=== PATIENT | male | born 1970 | race Caucasian/White ===

== ENCOUNTER → 2024-07-14 | Outpatient (CLI) | payer BC, SELFPAY ==
--- NOTE | 2024-07-14 09:55 | VDLE_ITS ---
Reason For Study: BLE PAin RIGHT LEFT GSV is normal. GSV is normal. CFV is compressible, spontaneous, phasic, CFV is compressible, spontaneous, phasic, competent and demonstrates normal competent, and demonstrates normal augmentation. augmentation. FV is compressible, spontaneous, phasic, FV is compressible, spontaneous, phasic, competent and demonstrates normal competent and demonstrates normal augmentation. augmentation. POP V is compressible, spontaneous, phasic, POP V is compressible, spontaneous, phasic, competent and demonstrates normal competent and demonstrates normal augmentation. augmentation. T/P Trunk is compressible. T/P Trunk is compressible. PTV is compressible. PTV is compressible. RT PerV is compressible. LT PerV is compressible. Procedure Exam performed in department. This is a venous duplex using B-mode, color flow and spectral Doppler. The exam was diagnostic. VL/Venous Duplex US - Lake Extrem Interpretation Summary Deep veins of the bilateral lower extremities are patent and compressible segme ntally. There is no evidence of bilateral lower extremity deep vein thrombosis. The bilateral great saphenous veins appear patent and compressible segmentally. Ordering Physician: Oswaldo Savage Referring Physician: N/A Performed By: Miguel Alegre RVT
--- NOTE | 2024-07-14 09:55 | ART_ITS ---
Reason For Study: BLE Pain Procedure A bilateral lower extremity continuous wave Doppler with analog waveform analysis,segmental pressures,and ankle brachial indexes without exercise. Left Segmental Pressures Left brachial= 129mmHg. Left posterior tibial artery = 143mmHg. Left dorsalis pedis artery = 136mmHg. Left digit = 66 mmHg. The left posterior tibial artery waveforms are triphasic. The left dorsalis pedis waveforms are triphasic. Right Segmental Pressures Right brachial= 130mmHg. Right posterior tibial artery = 146mmHg. Right dorsalis pedis artery = 140mmHg. Right digit = 110 mmHg. The right posterior tibial artery waveforms are triphasic. The right dorsalis pedis waveforms are triphasic. Indices The right ankle brachial index by the posterior tibial artery is 1.12. The right ankle brachial index by the dorsalis pedis is 1.08. The right digital-brachial index is 0.85. The left ankle brachial index by the posterior tibial artery is 1.10. The left ankle brachial index by the dorsalis pedis is 1.05. The left digital-brachial index is 0.51. VL/Lower Ext Art Exam w/o Exercis Interpretation Summary Right ELIUD 1.12, normal. TBI and Doppler/PVR waveforms of the right leg normal a t rest. Left ELIUD 1.1, normal. Doppler/PVR waveforms of the left leg normal at rest. TBI diminished, pedal/digit disease vs spasm. Ordering Physician: Oswaldo Savage Referring Physician: N/A Performed By: Miguel Alegre, RVT
== END | disposition home or self-care (01) ==
LOC: CVS 09:53
PROVIDERS: Referring Provider Podiatrist Foot & Ankle Surgery; Visit Provider Podiatrist Foot & Ankle Surgery
DX: I73.9 Peripheral vascular disease, unspecified (principal); M79.604 Pain in right leg; M79.605 Pain in left leg
CPT/HCPCS: 93923; 93970